=== PATIENT | female | born 1965 | race Caucasian/White ===

== ENCOUNTER 2016-07-11 12:52 | Emergency (ER) | payer MEDICAID ==
[~2016-07-11] VITALS: Ht 154.9 cm; Wt 54.4 kg
[2016-07-11 13:01] VITALS: BP 170/71
--- NOTE | 2016-07-11 14:01 | NUR ---
PT AMBULATED TO ER BED 4.
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
--- NOTE | 2016-07-11 14:11 | NUR ---
Patient being evaluated by physician at bedside.
[2016-07-11] MEDS ORDERED: ACETAMIN/CODEINE 120/12MG-5ML 5 ML UDC PO ONE (14:15)
[2016-07-11] MEDS ORDERED: IBUPROFEN 600 MG TAB PO ONE (14:15)
--- NOTE | 2016-07-11 14:27 | NUR ---
PT TAKEN TO X-RAY VIA WHEELCHAIR BY [facility].
--- NOTE | 2016-07-11 14:30 | NUR ---
PT RETURNED FROM X-RAY VIA WHEELCHAIR BY [facility].
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
[2016-07-11 15:10] VITALS: BP 137/78
== END 2016-07-11 15:08 | disposition home or self-care (01) ==
LOC: MED 12:52
DX: S20.212A Contusion of left front wall of thorax, initial encounter (principal); S30.1XXA Contusion of abdominal wall, initial encounter; Y04.2XXA Assault by strike against or bumped into by another person, initial encounter; Y93.89 Activity, other specified; Y92.009 Unspecified place in unspecified non-institutional (private) residence as the place of occurrence of the external cause; Y99.8 Other external cause status
CPT/HCPCS: 71010; 74176; 81002; 81025; 99284; Q0092